=== PATIENT | male | born 1970 | race African-American/Black ===

== ENCOUNTER 2016-12-25 18:05 | Emergency (ER) | payer MEDICAID ==
[~2016-12-25] VITALS: Ht 182.9 cm; Wt 100.2 kg
[2016-12-25 18:13] VITALS: BP 167/108
[2016-12-25] MEDS ORDERED: GLUCOPHAGE XR500 MG PO (18:16)
[2016-12-25] MEDS ORDERED: ZOCOR20 MG PO (18:16)
[2016-12-25] MEDS ORDERED: ORETIC25 MG PO (18:16)
--- NOTE | 2016-12-25 18:20 | NUR ---
Patient ambulated to bed 8. RN evaluating patient at bedside.
--- NOTE | 2016-12-25 18:30 | NUR ---
PATIENT PRESENTS TO ED WITH LOW BACK PAIN X4 DAYS. DENIES TRAUMA; DENIES N/V/D; SKIN IS PINK/WARM/DRY; AAOX4 WITH EVEN AND STEADY GAIT; LUNGS CLEAR BL; HR EVEN AND REGULAR; PT DENIES ANY FEVER, CP, SOB, OR COUGH AT THIS TIME; PATIENT STATES PAIN OF 10/10 AT THIS TIME; VSS; PATIENT POSITIONED FOR COMFORT; HOB ELEVATED; BEDRAILS UP X2; BED DOWN. ER MD MADE AWARE OF PT STATUS.
--- NOTE | 2016-12-25 19:05 | NUR ---
RUPALIO PT TAKEN TO [facility] WHEEL CHAIR BY STAFF COUNSELOR
--- NOTE | 2016-12-25 19:15 | NUR ---
RECIEVED REPORT FROM DAY NURSE, THEODORA, FOR CONTINUITY OF CARE. PATIENT RESTING IN BED. NO RESPIRATORY DISTRESS OR SOB. BED IN LOWEST POSITION, SIDE RAILS UP X2. WILL CONTINUE TO MONITOR.
--- NOTE | 2016-12-25 19:15 | NUR ---
REPORT GIVEN TO TALA
--- NOTE | 2016-12-25 19:21 | NUR ---
PATIENT RETURNED FROM X-RAY VIA WHEELCHAIR.
[2016-12-25] MEDS ORDERED: HYDROcodone/APAP 5/325 MG 1 TAB TAB PO ONE (19:35)
[2016-12-25] MEDS ORDERED: KETOROLAC 30 MG/ML VIAL IM ONE (19:35)
[2016-12-25] MEDS ORDERED: DIAZEPAM 5 MG TAB PO ONE (19:35)
[2016-12-25 20:05] VITALS: BP 139/81
--- NOTE | 2016-12-25 20:05 | NUR ---
Patient discharged with v/s stable. Written and verbal after care instructions given and explained. Patient alert, oriented and verbalized understanding of instructions. Ambulatory with steady gait. All questions addressed prior to discharge. ID band removed. Patient advised to follow up with PMD. Rx of VALIUM 5MG TABLET, NAPROSYN 500MG TABLET, AND NORCO 5MG-325MG TABLET given. Patient educated on indication of medication including possible reaction and side effects. Opportunity to ask questions provided and answered.
== END 2016-12-25 20:05 | disposition home or self-care (01) ==
LOC: MED 18:05
DX: M54.5 Low back pain (principal); E11.9 Type 2 diabetes mellitus without complications; I10 Essential (primary) hypertension; Z88.0 Allergy status to penicillin; Z91.041 Radiographic dye allergy status; Z79.4 Long term (current) use of insulin; Z79.899 Other long term (current) drug therapy
CPT/HCPCS: 72100; 96372; 99284; J1885

== ENCOUNTER 2017-01-01 19:55 | Inpatient (IN) | payer MEDICAID ==
[~2017-01-01] VITALS: Ht 182.9 cm; Wt 99.8 kg
[~2017-01-01 19:55] MED LIST: GLUCOPHAGE XR500 MG PO; ORETIC25 MG PO; ZOCOR20 MG PO
[2017-01-01 20:24] VITALS: BP 151/89
--- NOTE | 2017-01-01 21:35 | NUR ---
PT RETURN FROM CT TO BED 3
[2017-01-01] MEDS ORDERED: MORPHINE SULFATE 10 MG/ML SYR IM ONE (21:45)
--- NOTE | 2017-01-01 21:45 | NUR ---
Dr. Hinton evaluating patient at bedside.
--- NOTE | 2017-01-01 22:00 | NUR ---
46Y M PRESENT TO ER C/O OF LOW BACK PAIN THAT RADIATES TO BOTH LEGS AND FEET. PT WAS HERE 7 DAYS AGO FOR SAME C/O. PAIN IS 10/10 IN SCALE. HX OF DM, HTN. DENIES N/V/D; SKIN IS PINK/WARM/DRY; AAOX4 WITH EVEN AND STEADY GAIT; LUNGS CLEAR BL; HR EVEN AND REGULAR; PT DENIES ANY FEVER, CP, SOB, OR COUGH AT THIS TIME; PATIENT STATES PAIN OF 10/10 AT THIS TIME; VSS; PATIENT POSITIONED FOR COMFORT; HOB ELEVATED; BEDRAILS UP X2; BED DOWN. ER MD MADE AWARE OF PT STATUS.
[2017-01-01] MEDS ORDERED: KCL 20 MEQ/WATER INJ PREMIX 200 ML IV ONE (23:00)
--- NOTE | 2017-01-01 23:08 | NUR ---
PT TAKEN TO CT
[2017-01-02] MEDS ORDERED: POTASSIUM CHLORIDE 10 MEQ TABER PO ONE (00:30)
--- NOTE | 2017-01-02 00:35 | NUR ---
PT C/O PAIN WITH KCL INFUSION. DR VALDEZ NOTIFIED. ORDER CHANGED TO PO KCL, KCL IV INFUSION STOPPED.
[2017-01-02] MEDS ORDERED: ONDANSETRON 4 MG/2 ML VIAL IVP PRN (01:00)
[2017-01-02] MEDS ORDERED: MORPHINE SULFATE 2 MG/ML SYR IVP SCH ×2 (01:00→01:50)
[2017-01-02] MEDS ORDERED: HYDROcodone/APAP 5/325 MG 1 TAB TAB PO PRN (01:00)
[2017-01-02] MEDS ORDERED: ACETAMINOPHEN 325 MG TAB PO PRN (01:00)
[2017-01-02] MEDS: NACL 0.9% 1,000 ML IV SCH ×2 (01:00→12:20)
--- NOTE | 2017-01-02 03:48 | NUR ---
Patient will be admitted to care of DR HESTER. Admited to MED SURG. Will go to room 111A. Belongings list completed. Report to BLAS BARDALES.
--- NOTE | 2017-01-02 03:50 | NUR ---
PT IS CURRENTLY AWAKE ALERT ORIENTED ASSISTED TO BED PT COMPLAINS OF BACK PAIN WHEN MOVING OR DOING ANY KIND OF ACTIVITY.MRSA SWAB OF THE NARES WAS COLLECTED AND WILL BE SENT TO THE LAB.VITALS TAKEN AND RECORDED.SKIN CHECK DONE WITH RAMONE HADDAD PT HAS SOME DRY SCABS NOTED TO RT LOWER LEG AND HAS MULTIPLE TATOOES THROUGHOUT THE BODYK OTHERWISE HE HAS NO SKIN PROBLEM.PT CAN WALK BUT IS SLIGHTLY LIMITED BECAUSE OF THE BACK PAIN AND NEEDS ASSISTANCE TO STAND UP.PATIENT WAS PLACED ON FALL PRECAUTIONS AND ORIENTED ON HOW TO USE THE CALL LIGHT FOR ASSISTANCE.ALLERGIES BAND PLACED ON THE PATIENT HE IS ALLERGIC TO ASPIRIN AND IODINE.PT WILL BE ASSISTED AND WAS GIVEN THE URINAL FOR NOW.PATIENT HAS AN IV TO HIS RT HAND G#20 AND I WILL FOLLOW UP ON ANY ORDERS GIVEN BY MD IN REGARDS TO IV FLUIDS OR MEDS.PLAN OF CARE REVIEWED WITH THE PATIENT.PT RESTING IN BED CALL LIGHT WITHIN REACH WILL CONTINUE TO OBSERVE.
[2017-01-02 03:54] VITALS: BP 151/99
--- NOTE | 2017-01-02 04:30 | NUR ---
Patient's Plan of Care was discussed and reviewed with BURRER HAND: ANABEL PLEITEZ
--- NOTE | 2017-01-02 04:47 | NUR ---
I CALLED MD HOUGH EXCHANGE TO NOTIFY HER OF LOW MAG LEVEL AND LOW POTASSIUM.WILL AWAIT FOR A CALL BACK.
--- NOTE | 2017-01-02 04:49 | NUR ---
MD HOUGH CALLED BACK AND WAS INFORMED OF MAG LEVEL OF 1.7 SHE SAID SHE WILL ORDER SOMETHING FOR THE PATIENT AND SHE WAS ALSO INFORMED THAT PATIENT IS DIABETIC MD SAID SHE WILL FOLLOW UP ON THAT AND SAID SHE WILL INPUT ORDERS.
--- NOTE | 2017-01-02 04:53 | NUR ---
CALLED LAB TO SEE IF THEY CAN USE PREVIOUS URINE COLLECTED FOR UDS.
[2017-01-02] MEDS ORDERED: DEXTROSE 50% 50 ML SYR IVP PRN (04:55)
--- NOTE | 2017-01-02 05:49 | NUR ---
PT RESTING IN BED SCD'S AVAILABLE AND PATIENT WAS PLACED ON SCD'S FOR DVT PROPHALAXIS. PT IS VERY DROWSY AND VERY SLEEPY.
[2017-01-02] MEDS: BLOOD GLUCOSE MONITORING 1 DEV DEV FS SCH ×4 (06:23→20:38)
--- NOTE | 2017-01-02 06:34 | NUR ---
PATIENT COMPLAINS OF SLIGHT SHORTNESS OF BREATH. PT WAS PLACED ON OXYGEN AT 3LITERS NASAL CANNULA.WILL CONTINUE TO MONITOR.PATIENT USED THE URINAL AND WAS ASSISTED BACK TO BED.CALL LIGHT WITHIN REACH.WILL CONTINUE TO MONITOR.
--- NOTE | 2017-01-02 07:14 | NUR ---
REPORT ENDORSED TO RAMONE LEE SHE WILL RESUME CARE OF THE PATIENT.PT STABLE AT THIS TIME SLEEPING. RAMONE LEE WAS INFORMED THAT PT HAS SCHEDULED MORPHINE AND IT WAS HELD AT FOUR THIS MORNING, ALSO INFORMED THAT PATIENT HAD SOME SLIGHT SOB AND WAS PLACED ON OXYGEN.
--- NOTE | 2017-01-02 07:17 | NUR ---
RECEIVED REPORT FROM NIGHT RN. PT SLEEPING IN BED. NO S/S OF ACUTE DISTRESS. AAOX4. NO S/S OF ACUTE DISTRESS. PT DENIES PAIN. IV SITE PATENT AND INTACT. CALL LIGHT WITHIN REACH. SAFETY MEASURES ENSURED. WILL CONTINUE TO MONITOR.
[2017-01-02] MEDS ORDERED: MORPHINE SULFATE 2 MG/ML SYR IVP PRN (07:50)
[2017-01-02 07:52] VITALS: BP 132/106
--- NOTE | 2017-01-02 08:01 | NUR ---
DR. HORN MADE AWARE OF BP 132/106. RR 22. PT STATES SOB O2 SAT 93% ON 3L NC. PT REPOSITIONED TO SITTING UPRIGHT POSITION. PT STATES HE IS "MORE COMFORTABLE". PT IS BREATHING EASIER. RR 18. NO S/S OF ACUTE DISTRESS. PT DENIES PAIN. CALL LIGHT WITHIN REACH. SAFETY MEASURES ENSURED. WILL CONTINUE TO MONITOR.
[2017-01-02] MEDS ORDERED: ALBUTEROL SULFATE/IPRATROPIU 3 ML SOL IH PRN (08:05)
[2017-01-02] MEDS: DOCUSATE SODIUM 100 MG GELCAP PO SCH (09:25)
[2017-01-02] MEDS: MAGNESIUM OXIDE 400 MG TAB PO SCH ×2 (09:25→20:39)
[2017-01-02] MEDS: FUROSEMIDE 40 MG/4 ML VIAL IVP SCH (09:26)
[2017-01-02] MEDS ORDERED: HYDROCHLOROTHIAZIDE 25 MG TAB PO SCH (09:40)
[2017-01-02] MEDS ORDERED: SIMVASTATIN 20 MG TAB PO SCH ×2 (09:59→21:00)
[2017-01-02] MEDS ORDERED: CARVEDILOL 3.125 MG TAB PO SCH (10:00)
[2017-01-02] MEDS ORDERED: LISINOPRIL 10 MG TAB PO SCH (10:02)
--- NOTE | 2017-01-02 10:35 | NUR ---
PT RESTING IN BED. NO S/S OF ACUTE DISTRESS. PT DENIES PAIN. ON O2 3L NC. PT STATES HE FEELS "BETTER" AFTER BREATHING TREATMENT. CALL LIGHT WITHIN REACH. SAFETY MEASURES ENSURED. WILL CONTINUE TO MONITOR.
[2017-01-02] MEDS ORDERED: DEXAMETHASONE 4 MG/ML VIAL IVP SCH (10:41)
[2017-01-02] MEDS: ALBUTEROL SULFATE/IPRATROPIU 3 ML SOL IH SCH ×4 (11:00→23:23)
--- NOTE | 2017-01-02 11:54 | NUR ---
PT RESTING IN BED. NO S/S OF ACUTE DISTRESS. PT DENIES PAIN. PT TOLERATED AM MEDS WELL. CALL LIGHT WITHIN REACH. SAFETY MEASURES ENSURED. WILL CONTINUE TO MONITOR.
[2017-01-02] MEDS: INSULIN LISPRO SLIDING SCALE 100 UNITS/ML VIAL SUBQ PRN ×3 (12:06→20:54)
[2017-01-02] MEDS: GABAPENTIN 100 MG CAP PO SCH ×2 (12:16→16:41)
[2017-01-02] MEDS ORDERED: POTASSIUM CHLORIDE 10 MEQ TABER PO SCH (14:00)
[2017-01-02] MEDS ORDERED: MAGNESIUM OXIDE 400 MG TAB PO SCH (14:00)
--- NOTE | 2017-01-02 14:24 | NUR ---
PT RESTING IN BED. NO S/S OF ACUTE DISTRESS. PT DENIES PAIN. ON O2 3L NC. CALL LIGHT WITHIN REACH. SAFETY MEASURES ENSURED. WILL CONTINUE TO MONITOR.
[2017-01-02] MEDS ORDERED: POTASSIUM CHLORIDE 40 MEQ, LIDOCAINE 1% 25 MG in NACL 0.9% 250 ML IV SCH (15:00)
[2017-01-02 16:20] VITALS: BP 155/109
--- NOTE | 2017-01-02 16:35 | NUR ---
PT SLEEPING IN BED. NO S/S OF ACUTE DISTRESS. ON O2 3L NC. CALL LIGHT WITHIN REACH. SAFETY MEASURES ENSURED. WILL CONTINUE TO MONITOR.
[2017-01-02] MEDS: CARVEDILOL 3.125 MG TAB PO SCH (16:42)
--- NOTE | 2017-01-02 17:30 | NUR ---
PT REFUSES POTASSIUM IV. DR OSUNA MADE AWARE.
--- NOTE | 2017-01-02 19:09 | NUR ---
ENDORSED PLAN OF CARE TO NIGHT RN. PT REMAINS IN STABLE CONDITION.
--- NOTE | 2017-01-02 19:30 | NUR ---
RECEIVED REPORT FROM DAY RN AT BEDSIDE, PATIENT IS AAO X4 SLEEPING BUT EASILY AROUSABLE, PATIENT IS ON OXYGEN AT 3L VIA NC, NO SOB NOTED AT THIS TIME, PATIENT HAS IV TO RIGHT HAND INFUSING WELL, ASYMPTOMATIC, PATIENT DENIES PAIN AT THIS TIME, DISCUSSED PLAN OF CARE WITH PATIENT, PATIENT VERBALIZED UNDERSTANDING, SAFETY MEASURES CHECKED, CALL LIGHT WITHIN REACH. WILL CONTINUE TO MONITOR.
[2017-01-02 20:00] VITALS: BP 146/109
--- NOTE | 2017-01-02 20:30 | NUR ---
PATIENT STATED HE IS HUNGRY AND WILL NEVER EAT THE FOOD SERVED HERE, OFFERED AND PROVIDED PATIENT A SANDWICH AND SODA PER PATIENT REQUEST. PATIENT APPEARS FRUSTRATED. CALL LIGHT WITHIN REACH, WILL CONTINUE TO MONITOR.
--- NOTE | 2017-01-02 20:54 | NUR ---
PM MEDS ADMINISTERED, PATIENT TOLERATED WELL, BS CHECK 205. CALL LIGHT WITHIN REACH. WILL CONTINUE TO MONITOR.
[2017-01-02] MEDS ORDERED: ATORVASTATIN 20 MG TAB PO SCH (21:00)
--- NOTE | 2017-01-02 23:07 | NUR ---
PATIENT SLEEPING, NO SOB OR SIGN OF DISTRESS AT THIS TIME, CALL LIGHT WITHIN REACH. WILL CONTINUE TO MONITOR
--- NOTE | 2017-01-03 00:44 | NUR ---
PATIENT STATING HE CANT BREATHE, RAISED HOB, PATIENT VITALS STABLE 137/95 HR 75 O2 SAT 97% AT 3L NC. PATIENT STATES HE DOES NOT KNOW WHAT STARTS THE SOB, "JUST COMES AND GOES" , EXPLAINED TO PATIENT I COULD CALL RESPIRATORY, PATIENT DENIED AND STATED HE WOULD TRY TO SLEEP BEFORE HIS NEXT BREATHING TX. CALL LIGHT WITHIN REACH, WILL CONTINUE TO MONITOR. HOB AT RAISED IN SEMIFOWLERS AND LEFT PULSE OX ON FOR MONITORING.
--- NOTE | 2017-01-03 00:55 | NUR ---
CHECKED ON PATIENT, O2 SATS AT 96%, PATIENT SLEEPING, NO SOB NOTED. CALL LIGHT WITHIN REACH. WILL CONTINUE TO MONITOR.
--- NOTE | 2017-01-03 01:30 | NUR ---
PATIENT SLEEPING, NO SOB AT THIS TIME, O2 SATS AT 96%, CALL LIGHT WITHIN REACH. WILL CONTINUE TO MONITOR.
[2017-01-03] MEDS: ALBUTEROL SULFATE/IPRATROPIU 3 ML SOL IH SCH ×3 (03:16→11:23)
[2017-01-03 04:00] VITALS: BP 147/106
--- NOTE | 2017-01-03 04:19 | NUR ---
PATIENT AWAKE RESTING IN BED, NO SOB NOTED AT THIS TIME. PROVIDED PATIENT WITH WATER AND JELLO, CALL LIGHT WITHIN REACH. WILL CONTINUE TO MONITOR
[2017-01-03] MEDS: BLOOD GLUCOSE MONITORING 1 DEV DEV FS SCH ×2 (06:22→11:35)
[2017-01-03] MEDS: INSULIN LISPRO SLIDING SCALE 100 UNITS/ML VIAL SUBQ PRN (06:22)
--- NOTE | 2017-01-03 06:54 | NUR ---
PATIENT SLEEPING, NO SOB OR SIGN OF DISTRESS AT THIS TIME, CALL LIGHT WITHIN REACH. WILL CONTINUE TO MONITOR.
[2017-01-03] MEDS: NACL 0.9% 1,000 ML IV SCH (07:15)
--- NOTE | 2017-01-03 07:15 | NUR ---
ENDORSED PATIENT TO DAY SHIFT RN AT BEDSIDE, PATIENT IN STABLE CONDITION.
--- NOTE | 2017-01-03 07:16 | NUR ---
RECEIVED REPORT FROM RAMONE SABA. PT IS SLEEPING BUT EASILY AWAKEN, AAO X4, SKIN INTACT IV ON RIGHT HAND PATENT AND INTACT INFUSING FLUID WELL. INITIAL ASSESSMENT DONE, NO S/S OF RESPIRATORY DISTRESS OR DISCOMFORT NOTED, DISCUSSED PLAN OF CARE, PT VERBALIZED UNDERSTANDING, SAFETY/FALL PRECAUTION ENFORCED, CALL LIGHT WITHIN REACH, WILL CONTINUE TO MONITOR.
[2017-01-03 08:00] VITALS: BP 156/99
[2017-01-03] MEDS: MAGNESIUM OXIDE 400 MG TAB PO SCH (08:59)
[2017-01-03] MEDS: CARVEDILOL 3.125 MG TAB PO SCH (08:59)
[2017-01-03] MEDS: GABAPENTIN 100 MG CAP PO SCH (08:59)
[2017-01-03] MEDS: DOCUSATE SODIUM 100 MG GELCAP PO SCH (08:59)
[2017-01-03] MEDS: FUROSEMIDE 40 MG/4 ML VIAL IVP SCH (08:59)
[2017-01-03] MEDS ORDERED: KCL 20 MEQ/WATER INJ PREMIX 200 ML IV SCH (09:00)
[2017-01-03] MEDS ORDERED: LISINOPRIL 10 MG TAB PO SCH (09:00)
--- NOTE | 2017-01-03 09:08 | NUR ---
DUE MEDS GIVEN, PT TOLERATED WELL, CALL LIGHT WITHIN REACH, WILL CONTINUE TO MONITOR.
--- NOTE | 2017-01-03 09:13 | NUR ---
PATIENT HAS BEEN SCREENED AND CATEGORIZED MODERATE NUTRITION RISK. PATIENT WILL BE SEEN WITHIN 3-5 DAYS OF ADMISSION. 01/04/17-01/06/[address] Addendum: 01/03/17 at [address] [facility] REFERRAL RECEIVED ON 01/02/17 FOR "NOT APPLICABLE". CONSULT REASON DOES NOT MEET HIGH RISK CRITERIA PER HOSPITAL POLICY. PT WILL BE SEEN AND ASSESSED ACCORDING TO THE NUTRITION CARE POLICY. DENA LAMB RD
[2017-01-03] MEDS ORDERED: POTASSIUM CHLORIDE 40 MEQ, LIDOCAINE 1% 25 MG in NACL 0.9% 250 ML IV SCH (10:00)
--- NOTE | 2017-01-03 11:25 | NUR ---
PT IS SLEEPING AT THIS TIME WITH RT AT BEDSIDE GIVING BREATHING TX, NO S/S OF RESPIRATORY DISTRESS OR DISCOMFORT NOTED, CALL LIGHT WITHIN REACH, WILL CONTINUE TO MONITOR.
--- NOTE | 2017-01-03 12:20 | NUR ---
PT WAS UPSET, WALKING TO NURSE'S STATION AND ASKING TO TAKE OUT THE IV. WALKED PT BACK TO THE ROOM AND PT PULLED IV OUT HIMSELF, CATHETER TIP INTACT, PT IS IN A HURRY GETTING READY AND UNABLE TO TALK TO STAYING. PT SIGNED AMA PAPERWORK, PT LEFT THE UNIT AMBULATING ESCORTED BY SECURITY, DAVID WITHOUT TALKING TO ATTENDING PHYSICIAN. PT STABLE UPON LEAVING.
== END 2017-01-03 12:20 | disposition left against medical advice (07) | DRG 282 ==
LOC: MED 19:55 → MTU 01-02 00:34
PROVIDERS: ADMIT Family Medicine; ATTEND Family Medicine
DX: K85.90 Acute pancreatitis without necrosis or infection, unspecified (principal); N17.0 Acute kidney failure with tubular necrosis; J96.90 Respiratory failure, unspecified, unspecified whether with hypoxia or hypercapnia; I50.43 Acute on chronic combined systolic (congestive) and diastolic (congestive) heart failure; G92 Toxic encephalopathy; E44.0 Moderate protein-calorie malnutrition; M51.37 Other intervertebral disc degeneration, lumbosacral region; E11.65 Type 2 diabetes mellitus with hyperglycemia; E78.5 Hyperlipidemia, unspecified; E87.6 Hypokalemia; Z68.29 Body mass index [BMI] 29.0-29.9, adult; Z88.0 Allergy status to penicillin; Z88.8 Allergy status to other drugs, medicaments and biological substances; F12.90 Cannabis use, unspecified, uncomplicated; F15.90 Other stimulant use, unspecified, uncomplicated; I11.0 Hypertensive heart disease with heart failure; T42.4X5A Adverse effect of benzodiazepines, initial encounter; T40.7X5A Adverse effect of cannabis (derivatives), initial encounter; E11.51 Type 2 diabetes mellitus with diabetic peripheral angiopathy without gangrene; K40.90 Unilateral inguinal hernia, without obstruction or gangrene, not specified as recurrent

== ENCOUNTER 2017-02-15 00:04 | Emergency (ER) | payer MEDICAID ==
[~2017-02-15] VITALS: Ht 182.9 cm; Wt 106.6 kg
[2017-02-15 00:35] VITALS: BP 151/102
--- NOTE | 2017-02-15 02:34 | NUR ---
TO ER BED 6
[2017-02-15 02:35] VITALS: BP 151/102
--- NOTE | 2017-02-15 02:35 | NUR ---
PT C/O RT EYE PAIN. HE WAS WORKING ON CAR, THINKS SOMETHING MAY HAVE FLOWN INTO IT. EYE IS SWOLLEN AND IS HARD TO KEEP EYE. PT TRIED TO FLUSH WITH WATER.
--- NOTE | 2017-02-15 03:15 | NUR ---
PATIENT LEFT WITHOUT BEING SEEN BY DR. FORD. NO FURTHER CARE PROVIDED FOR PATIENT.
== END 2017-02-15 03:15 | disposition left against medical advice (07) ==
LOC: MED 00:04
DX: H57.10 Ocular pain, unspecified eye (principal); Z53.21 Procedure and treatment not carried out due to patient leaving prior to being seen by health care provider